=== PATIENT | male | born 1955 | race American Indian/Alaskan Native ===

== ENCOUNTER 2018-02-16 11:49 | Emergency (ER) | payer OTHER ==
[2018-02-16 12:05] VITALS: BP 159/94; PULSE 60; RESP 20; TEMP 97.2; O2SAT 99
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
== END 2018-02-16 13:20 | disposition home or self-care (01) ==
LOC: C.ER 11:49
DX: T76.21XA Adult sexual abuse, suspected, initial encounter (principal)